=== PATIENT | female | born 1990 | race Caucasian/White ===

== ENCOUNTER → 2019-03-02 | Outpatient (CLI) | payer OTHER | LOC: LAB SHORT 16:51 → LAB 16:51 | DX: L08.9 Local infection of the skin and subcutaneous tissue, unspecified (principal); S40.911A Unspecified superficial injury of right shoulder, initial encounter; S40.912A Unspecified superficial injury of left shoulder, initial encounter; L72.0 Epidermal cyst; Q82.8 Other specified congenital malformations of skin | CPT/HCPCS: 87070; 87205 ==

== ENCOUNTER 2024-03-13 23:28 | Emergency (ER) | payer OTHER ==
[~2024-03-13] VITALS: Ht 165.1 cm; Wt 86.2 kg
[2024-03-13 23:54] LABS: Source, Urine Clean Catch
[2024-03-13 23:59] LABS: Bilirubin, Urine Neg (Neg); Blood, Urine 4+ (Neg); Glucose Qualitative, Urine Neg (Neg); Ketones, Urine 1+ (Neg); Leukocyte Esterase, Urine 3+ (Neg); Nitrite, Urine Pos (Neg); Protein, Urine 4+ (Neg); Specific Gravity, Urine 1.015 (1.003-1.022); Urobilinogen, Urine NORM (Normal)
[2024-03-14 00:16] LABS: Appearance, Urine Cloudy (Clear); Color, Urine Yellow (P-Yellow)
[2024-03-14 00:17] LABS: Bacteria Mod /hpf; Red Blood Cells, Urine 0-2 /hpf (0-2); Squamous Epithelial Cells Rare /hpf (Few); White Blood Cells, Urine TNTC /hpf (0-5)
[2024-03-14] MEDS ORDERED: Trimethoprim/Sulfamethoxazole DS Tab PO ONE (01:40)
[2024-03-14] MEDS ORDERED: Phenazopyridine HCl 100 MG Tab PO ONE (01:40)
[2024-03-14] MEDS ORDERED: PHENA200 PO (01:55)
[2024-03-14] MEDS ORDERED: SULTRIDS PO (01:55)
[2024-03-14 02:04] VITALS: BP 148/70
== END 2024-03-14 02:04 | disposition home or self-care (01) ==
LOC: ER 23:28
PROVIDERS: Student in an Organized Health Care Education/Training Program
DX: N39.0 Urinary tract infection, site not specified (principal); Z88.0 Allergy status to penicillin
CPT/HCPCS: 81001; 87077; 87086; 87186; 99283; A9270